=== PATIENT | female | born 1945 | race African-American/Black ===

== ENCOUNTER → 2016-05-10 | Outpatient (CLI) | payer OTHER ==
[~2016-05-10] MED LIST: ACTOS15 MG PO; ADVAIR 250-501 EACH IH; ALBUTEROL17 G1 IH; AMARYL PO; AMLODIPINE BESYL5 MG PO; BYSTOLIC5 MG PO; GLUCOTROL XL PO; HYDRALAZINE HCL25 MG PO; IBUPROFEN400 MG PO; IRON325 ( 651 PO; JANUVIA PO; LASIX PO; LASIX20 MG PO; LIDODERM30 EA TOP; PREDNISONE PO; PREDNISONE1 MG PO; SYNTHROID0.05 MG PO; SYNTHROID0.1 MG PO; TRICOR PO; TYLENOL PM EX-S1 TA4 PO; VITAMIN B650 MG PO; ZAROXYLYN PO
--- NOTE | ~2016-05-10 | CT57 ---
[facility] A Service of [facility] & [facility] RADIOLOGY TEXT RESULTS PATIENT: SALBADOR YANG [facility] UNIT #: [id number] AGE: [address]: LIVAN HAQUE APRN SEX: F ORDER DR: [id number] [facility] [address] [place], [place] [address] [id number] O MR#: [id number] Acc #: [id number] NAME: SALBADOR YANG : 1945 SEX: F STUDY DATE/TIME: 05/10/2016 13:18 UNIT: [facility] ROOM: STUDY DESCRIPTION: CT Chest Wo Cont Attending Physician: Livan Haque Referring Physician: Livan Haque Ordering Physician: Physician Non-Staff Primary Care Physician: Primary Care Physician No MEDICAL IMAGING REPORT This report is preliminary unless electronic signature is present EXAM CT chest without contrast INDICATION 70-year-old female with bilateral chest pain for [id number] weeks and recurrent pneumonia. History of diabetes. TECHNIQUE CT of the chest was performed without contrast. Coronal and sagittal reformatted images were obtained. This CT exam was performed with one or more of the following radiation dose reduction techniques: automatic exposure control, adjustment of mA and/or kV according to patient size, and iterative reconstruction. COMPARISON 08/24/2006 FINDINGS There is bilateral mid and lower zone predominant bronchiectasis, interstitial thickening and ground glass opacification. Findings are worse in the right lung than the left lung. There is also some increased volume loss in the right lung with respect to the left lung. Findings are most suggestive of pulmonary fibrosis. A superimposed pneumonia, however cannot be entirely excluded. Please correlate clinically with symptoms. Overall the findings are worse compared with the CT from 2006. There are multiple enlarged mediastinal lymph nodes which are likely reactive given the findings in the lungs. Index node in the paratracheal region on the right measures 2.4 x 1.8 cm. There is trace pleural fluid or thickening on the right. Borderline cardiac enlargement. Limited imaging of the upper abdomen demonstrates cholelithiasis. The bone windows demonstrate postoperative and degenerative changes of the spine. [facility] A Service of [facility] & [facility] RADIOLOGY TEXT RESULTS PATIENT: SALBADOR YANG [facility] UNIT #: [id number] AGE: [address]: LIVAN HAQUE APRN SEX: F ORDER DR: IMPRESSION 1. Bilateral interstitial thickening ground-glass opacification and bronchiectasis most suggestive of fibrosis. Findings are worse in the right lung than the left and are more predominant within the mid and lower zones. Overall the findings have worsened since the 2006 study. Superimposed pneumonia or edema, however cannot entirely be excluded. Please correlate clinically with symptoms. 2. Enlarged mediastinal lymph nodes which are likely reactive given the findings in the lungs. 3. Cholelithiasis. Dictated by... Joshua Nichols M.D. THIS IS AN ELECTRONICALLY VERIFIED REPORT Joshua Nichols M.D. at 05/13/2016 8:04 AM Celsa TD: 05/12/2016 13:01 JOB #: [id number] MEDICAL IMAGING REPORT Page 1 of 1 COPY
== END | disposition home or self-care (01) ==
LOC: CCAT 12:50
DX: Z01.811 Encounter for preprocedural respiratory examination (principal); N18.6 End stage renal disease; J18.0 Bronchopneumonia, unspecified organism; M25.511 Pain in right shoulder; J44.9 Chronic obstructive pulmonary disease, unspecified; R91.8 Other nonspecific abnormal finding of lung field; K80.20 Calculus of gallbladder without cholecystitis without obstruction; R59.0 Localized enlarged lymph nodes
CPT/HCPCS: 71250

== ENCOUNTER 2016-06-11 13:11 | Emergency (ER) | payer OTHER ==
--- NOTE | ~2016-06-11 | EKG ---
PATIENT: SALBADOR YANG UNIT #: [id number] Ventricular Rate: 111 BPM Atrial Rate: 111 BPM P-R Interval: 158 ms QRS Duration: 108 ms Q-T Interval: 338 ms QTC Calculation(Bezet): 459 ms P [place]: 31 degrees Calculated R [place]: 36 degrees Calculated T [place]: -6 degrees Diagnosis Line: Sinus tachycardia Diagnosis Line: Possible Left atrial enlargement Diagnosis Line: Incomplete right bundle branch block Diagnosis Line: Cannot rule out Inferior infarct (cited on or Diagnosis Line: before 11-JUN-2016) Diagnosis Line: ST and T wave abnormality, consider anterolateral Diagnosis Line: ischemia Diagnosis Line: Abnormal ECG Diagnosis Line: When compared with ECG of 28-SEP-2010 07:30, Diagnosis Line: Incomplete right bundle branch block is now Diagnosis Line: Present Diagnosis Line: Borderline criteria for Anterior infarct are no Diagnosis Line: longer Present Diagnosis Line: Questionable change in initial forces of Inferior Diagnosis Line: leads Diagnosis Line: Confirmed by SILVIO CASTILLO MD ([id number]) on 06/12/2016 Diagnosis Line: 4:56:40 AM INTERPRETING MD: JONATHAN REYNOLDS
== END 2016-06-11 13:15 | disposition home or self-care (01) ==
LOC: CED 13:11
DX: Z71.1 Person with feared health complaint in whom no diagnosis is made (principal); N18.9 Chronic kidney disease, unspecified; Z99.2 Dependence on renal dialysis
CPT/HCPCS: 93005; 99283